=== PATIENT | female | born 1985 | race Caucasian/White ===

== ENCOUNTER 2017-07-16 13:38 | Inpatient (IN) | payer SELFPAY ==
[2017-07-16] MEDS ORDERED: Oxytocin/Lactated Ringers 0 UNIT/0 ML BAG ONE (14:11)
[2017-07-16] MEDS ORDERED: Water For Irrigation,Sterile 1,000 ML Container IRR PRN (14:22)
[2017-07-16] MEDS ORDERED: Butorphanol 1 MG/ML SDV IVPUSH PRN (14:22)
[2017-07-16] MEDS ORDERED: oxyCODONE 5 MG Tab PO PRN (14:22)
[2017-07-16] MEDS ORDERED: Lanolin 100% Cream 7 GM Tube TOP PRN (14:22)
[2017-07-16] MEDS ORDERED: Sodium Chloride 0.9% 10 ML Syringe FLUSH PRN (14:22)
[2017-07-16] MEDS ORDERED: Docusate Sodium 100 MG Cap PO PRN (14:22)
[2017-07-16] MEDS ORDERED: Nalbuphine 10 MG/1 ML Vial IVPUSH PRN (14:22)
[2017-07-16] MEDS ORDERED: Acetaminophen 500 MG Tab PO PRN ×2 (14:22)
[2017-07-16] MEDS ORDERED: Bisacodyl 10 MG Supp RECTAL PRN (14:22)
[2017-07-16] MEDS ORDERED: Ibuprofen 400 MG Tab PO PRN (14:22)
[2017-07-16] MEDS ORDERED: Carboprost Tromethamine 250 MCG/1 ML Amp IM PRN (14:22)
[2017-07-16] MEDS ORDERED: Methylergonovine 0.2 MG/1 ML Amp IM PRN (14:22)
[2017-07-16] MEDS ORDERED: Witch Hazel Medicated Pads 40/Jar TOP PRN (14:22)
[2017-07-16] MEDS ORDERED: Sodium Chloride 0.9% 2.5 ML Syringe FLUSH PRN (14:22)
[2017-07-16] MEDS ORDERED: Lidocaine 1% 50 ML MDV INJECT PRN (14:22)
[2017-07-16] MEDS ORDERED: Misoprostol 200 MCG Tab PO PRN (14:22)
[2017-07-16] MEDS ORDERED: Benzocaine/Menthol 20%-0.5% Spray 78 GM Cannister TOP PRN (14:22)
--- NOTE | 2017-07-16 14:26 | PCM.LDHP ---
L&D History of Present Illness - General Date of Service: 07/16/17 Admit Problem/Dx: Patient Status Order with Admit Dx/Problem 07/16/17 14:22 Patient Status [ADT] Routine Admission Diagnosis/Problem Admission Diagnosis/Problem Source of Information: Patient History Limitations: Reports: No Limitations - History of Present Illness Improves with: Reports: None Worsens with: Reports: None Associated Symptoms: Reports: N - Related Data Allergies/Adverse Reactions: Allergies Allergy/AdvReac Type Severity Reaction Status Date / Time No Known Allergies Allergy Verified 04/07/14 18:17 Home Medications: Home Meds Vits #93/Iron Fum/FA [ Formula Tablet] 04/08/14 [History] Past Medical History - Past Health History Medical/Surgical History: Denies Medical/Surgical History H&P Review of Systems - Review of Systems: Review Of Systems: See Below General: Reports: No Symptoms HEENT: Reports: No Symptoms Pulmonary: Reports: No Symptoms Cardiovascular: Reports: No Symptoms Gastrointestinal: Reports: No Symptoms Genitourinary: Reports: No Symptoms Musculoskeletal: Reports: No Symptoms Skin: Reports: No Symptoms Psychiatric: Reports: No Symptoms Neurological: Reports: No Symptoms Hematologic/Lymphatic: Reports: No Symptoms Immunologic: Reports: No Symptoms L&D Exam - Exam Exam: See Below - OB Specific Contraction Intensity: Moderate to Strong Movement: Active Heart Tones: Present Presentation: Vertex - Simmons Score Simmons Score Cervix Position: Anterior Simmons Score Consistency: Soft Simmons Score Effacement: >80% Simmons Score Dilation: > 5 cm Simmons Score Infant's Station: -1 ,0 Simmons Score Total: 12 - Exam General: Alert, Oriented HEENT: PERRLA, Conjunctiva Clear, EACs Clear, EOMI, Hearing Intact, Mucosa Moist & [place], Nares Patent, Normal Nasal Septum, Posterior Pharynx Clear, TMs Clear Neck: Supple, Trachea Midline Lungs: Clear to Auscultation, Normal Respiratory Effort Cardiovascular: Regular Rate, Regular Rhythm GI/Abdominal Exam: Normal Bowel Sounds, Soft, Non-Tender, No Organomegaly, No Distention, No Abnormal Bruit, No Mass, Pelvis Stable Rectal Exam: Normal Exam, Normal Rectal Tone Genitourinary: Normal external exam, Normal bimanual exam, Normal speculum exam Back Exam: Normal Inspection, Full Range of Motion Extremities: Normal Inspection, Normal Range of Motion, Non-Tender, No Pedal Edema, Normal Capillary Refill Skin: Warm, Dry, Intact Neurological: Cranial Nerves Intact, Reflexes Equal Bilateral Psychiatric: Alert, Normal Affect, Normal Mood Problem List Initiated/Reviewed/Updated: Yes Orders Last 24hrs: Active Orders 24 hr Category Date Time Status Patient Status [ADT] Routine ADT 07/16/17 14:22 Ordered May Shower [RC] ASDIRECTED Care 07/16/17 14:22 Ordered Up ad Maria Elena [RC] ASDIRECTED Care 07/16/17 14:22 Ordered Vital Signs [RC] PER UNIT ROUTINE Care 07/16/17 14:22 Ordered HEMOGLOBIN/HEMATOCRIT,HH [HEME] Timed Lab 07/17/17 05:11 Ordered Acetaminophen [Tylenol Extra Strength] Med 07/16/17 14:22 Ordered 1,000 mg PO Q4H PRN Acetaminophen [Tylenol Extra Strength] Med 07/16/17 14:22 Ordered 500 mg PO Q4H PRN Benzocaine/Menthol [Dermoplast Pain Relief 20%-0.5% Med 07/16/17 14:22 Ordered [place]] 78 gm TOP ASDIRECTED PRN Bisacodyl [Dulcolax] Med 07/16/17 14:22 Ordered 10 mg RECTAL .ONCE PRN Docusate Sodium [Colace] Med 07/16/17 14:22 Ordered 100 mg PO BID PRN Ibuprofen [Motrin] Med 07/16/17 14:22 Ordered 400 mg PO Q4H PRN Ibuprofen [Motrin] Med 07/16/17 14:22 Ordered 800 mg PO Q6H PRN Lanolin [Lansinoh HPA] Med 07/16/17 14:22 Ordered See Dose Instructions TOP ASDIRECTED PRN Witch Lotus [Tucks] Med 07/16/17 14:22 Ordered 1 pad TOP ASDIRECTED PRN oxyCODONE Med 07/16/17 14:22 Ordered 5 mg PO Q2H PRN Assess Lochia [WOMSER] Per Unit Routine Oth 07/16/17 14:22 Ordered Assess Uterine Involution [WOMSER] Per Unit Routine Oth 07/16/17 14:22 Ordered Peripheral IV Discontinue [OM.PC] Routine Oth 07/16/17 14:22 Ordered Resuscitation Status Routine Resus Stat 07/16/17 14:22 Ordered Assessment/Plan Comment:: no care and no record available in active labor the patient claims that she is due yesterday she claimed that she is seen in mounter automatic she is dilated to 7-8 with bulging bag of water vertex at +1 station with an eminent delivery
[2017-07-16] MEDS ORDERED: Lactated Ringers 1,000 ML IV SCH (14:30)
[2017-07-16] MEDS: Ibuprofen 800 MG Tab PO PRN ×2 (14:35→20:55)
[2017-07-17] MEDS: Ibuprofen 800 MG Tab PO PRN ×2 (02:49→09:09)
[2017-07-17 09:15] VITALS: BP 120/79
--- NOTE | 2017-07-17 09:30 | PCM.PNPP ---
- General Info Date of Service: 07/17/17 Functional Status: Reports: Pain Controlled - Review of Systems General: Reports: No Symptoms HEENT: Reports: No Symptoms Pulmonary: Reports: No Symptoms Cardiovascular: Reports: No Symptoms Gastrointestinal: Reports: No Symptoms Genitourinary: Reports: No Symptoms Musculoskeletal: Reports: No Symptoms Skin: Reports: No Symptoms Neurological: Reports: No Symptoms Psychiatric: Reports: No Symptoms - General Info Date of Service: 07/17/17 - Patient Data Vital Signs - Most Recent: Last Vital Signs Temp 37.1 C 07/17/17 09:14 Pulse 79 07/17/17 09:14 Resp 16 07/17/17 09:14 BP 120/79 07/17/17 09:14 Pulse Ox 97 07/17/17 09:14 Weight - Most Recent: 66.678 kg Lab Results - Last 24 Hours: Laboratory Results - last 24 hr 07/16/17 07/16/17 07/17/17 Range/Units 13:59 13:59 05:04 WBC 11.27 H (4.0-11.0) K/uL RBC 4.87 (4.30-5.90) M/uL Hgb 13.5 12.2 (12.0-16.0) g/dL Hct 39.4 36.1 (36.0-46.0) % MCV 80.9 (80.0-98.0) fL MCH 27.7 (27.0-32.0) pg MCHC 34.3 (31.0-37.0) g/dL RDW Std Deviation 45.6 (28.0-62.0) fl RDW Coeff of Rohit 16 H (11.0-15.0) % Plt Count 222 (150-400) K/uL MPV 10.70 (7.40-12.00) fL Nucleated RBC % 0.0 /100WBC Nucleated RBCs # 0 K/uL Blood Type O POSITIVE Antibody Screen NEGATIVE Med Orders - Current: Current Medications Acetaminophen (Tylenol Extra Strength) 500 mg PO Q4H PRN PRN Reason: Pain Acetaminophen (Tylenol Extra Strength) 1,000 mg PO Q4H PRN PRN Reason: Pain Benzocaine/Menthol (Dermoplast Pain Relief 20%-0.5% [place]) 78 gm TOP ASDIRECTED PRN PRN Reason: Perineal Comfort Measure Bisacodyl (Dulcolax) 10 mg RECTAL .ONCE PRN PRN Reason: Constipation Butorphanol Tartrate (Stadol) 1 mg IVPUSH Q1H PRN PRN Reason: Pain Carboprost Tromethamine (Hemabate Ds) 250 mcg IM ASDIRECTED PRN PRN Reason: Post Hemorrhage Docusate Sodium (Colace) 100 mg PO BID PRN PRN Reason: Constipation Emollient Ointment (Lansinoh Hpa) 0 gm TOP ASDIRECTED PRN PRN Reason: Sore Nipples Lactated Ringer's (Ringers, Lactated) 1,000 mls @ 150 mls/hr IV ASDIRECTED KHADRA Ibuprofen (Motrin) 400 mg PO Q4H PRN PRN Reason: Pain Ibuprofen (Motrin) 800 mg PO Q6H PRN PRN Reason: Pain Last Admin: 07/17/17 09:09 Dose: 800 mg Lidocaine HCl (Xylocaine 1%) 50 ml INJECT .ONCE PRN PRN Reason: Laceration repair Methylergonovine Maleate (Methergine) 0.2 mg IM ASDIRECTED PRN PRN Reason: Post Hemorrhage Misoprostol (Cytotec) 200 mcg PO .ONCE PRN PRN Reason: Post Hemorrhage Nalbuphine HCl (Nubain) 10 mg IVPUSH Q1H PRN PRN Reason: Pain (severe 7-10) Oxycodone HCl (Oxycodone) 5 mg PO Q2H PRN PRN Reason: Pain Sodium Chloride (Saline Flush) 10 ml FLUSH ASDIRECTED PRN PRN Reason: Keep Vein Open Sodium Chloride (Saline Flush) 2.5 ml FLUSH ASDIRECTED PRN PRN Reason: Keep Vein Open Sterile Water (Sterile Water For Irrigation) 1,000 ml IRR ASDIRECTED PRN PRN Reason: delivery Witch Lotus (Tucks) 1 pad TOP ASDIRECTED PRN PRN Reason: comfort care Discontinued Medications Oxytocin/Lactated Ringer's (Pitocin In Lr 30 Units/500 Ml) Confirm Administered Dose 30 unit in 500 mls @ as directed .ROUTE .STK-MED ONE Stop: 07/16/17 14:12 - Interaction Infant Disposition, : in Room with Family Infant Interaction: Holding Feeding: Attempted ; Nursed Fair/Poor Support Person: - Recovery Exam Fundal Tone: Firm Fundal Level: At Umbilicus Fundal Placement: Right Lochia Amount: Scant Lochia Color: Rubra/Red Perineum Description: Intact, Minimal Bruising/Swelling Episiotomy/Laceration: None Bladder Status: Voiding Urinary Elimination: Voided - Exam General: Alert, Oriented HEENT: Pupils Equal Neck: Supple Lungs: Clear to Auscultation, Normal Respiratory Effort Cardiovascular: Regular Rate, Regular Rhythm GI/Abdominal Exam: Normal Bowel Sounds, Soft, Non-Tender, No Organomegaly, No Distention, No Abnormal Bruit, No Mass, Pelvis Stable Extremities: Normal Inspection, Normal Range of Motion, Non-Tender, No Pedal Edema, Normal Capillary Refill Skin: Warm, Dry, Intact Wound/Incisions: Healing Well Neurological: No New Focal Deficit Psy/Mental Status: Alert, Normal Affect, Normal Mood - Problem List Review Problem List Initiated/Reviewed/Updated: Yes - My Orders Last 24 Hours: My Active Orders 07/16/17 13:40 Patient Status [ADT] Routine 07/16/17 14:22 Patient Status [ADT] Routine May Shower [RC] ASDIRECTED Up ad Maria Elena [RC] ASDIRECTED Vital Signs [RC] PER UNIT ROUTINE Acetaminophen [Tylenol Extra Strength] 1,000 mg PO Q4H PRN Acetaminophen [Tylenol Extra Strength] 500 mg PO Q4H PRN Benzocaine/Menthol [Dermoplast Pain Relief 20%-0.5% [place]] 78 gm TOP ASDIRECTED PRN Bisacodyl [Dulcolax] 10 mg RECTAL .ONCE PRN Butorphanol [Stadol] 1 mg IVPUSH Q1H PRN Carboprost Tromethamine [Hemabate DS] 250 mcg IM ASDIRECTED PRN Docusate Sodium [Colace] 100 mg PO BID PRN Ibuprofen [Motrin] 400 mg PO Q4H PRN Ibuprofen [Motrin] 800 mg PO Q6H PRN Lanolin [Lansinoh HPA] See Dose Instructions TOP ASDIRECTED PRN Lidocaine 1% [Xylocaine 1%] 50 ml INJECT .ONCE PRN Methylergonovine [Methergine] 0.2 mg IM ASDIRECTED PRN Misoprostol [Cytotec] 200 mcg PO .ONCE PRN Nalbuphine [Nubain] 10 mg IVPUSH Q1H PRN Sodium Chloride 0.9% [Saline Flush] 10 ml FLUSH ASDIRECTED PRN Sodium Chloride 0.9% [Saline Flush] 2.5 ml FLUSH ASDIRECTED PRN Water For Irrigation,Sterile [Sterile Water for Irrigation] 1,000 ml IRR ASDIRECTED PRN Witch Lotus [Tucks] 1 pad TOP ASDIRECTED PRN oxyCODONE 5 mg PO Q2H PRN Assess Lochia [WOMSER] Per Unit Routine Assess Uterine Involution [WOMSER] Per Unit Routine Peripheral IV Discontinue [OM.PC] Routine Resuscitation Status Routine 07/16/17 14:23 May Shower [RC] ASDIRECTED Up ad Maria Elena [RC] ASDIRECTED Vital Signs [RC] PER UNIT ROUTINE Scalp Electrode [WOMSER] Per Unit Routine Peripheral IV Insertion Adult [OM.PC] Routine 07/16/17 14:30 Lactated Ringers [Ringers, Lactated] 1,000 ml IV ASDIRECTED 07/16/17 18:10 Peripheral IV Discontinue [OM.PC] Routine 07/16/17 Dinner Regular Diet [DIET] - Plan Plan:: no care and no record available in active labor the patient claims that she is due yesterday she claimed that she is seen in button riveter she is dilated to 7-8 with bulging bag of water vertex at +1 station with an eminent delivery
--- NOTE | 2017-07-17 09:31 | PCM.DCSUM1 ---
Discharge Summary - Discharge Data Discharge Date: 07/17/17 Discharge Disposition: Home, Self-Care 01 Condition: Good - Patient Instructions Diet: Usual Diet as Tolerated Activity: As Tolerated Driving: Do Not Drive Showering/Bathing: May Shower Notify Provider of: Fever, Increased Pain, Nausea and/or Vomiting - Discharge Plan Home Medications: Home Meds Vits #93/Iron Fum/FA [ Formula Tablet] 04/08/14 [History] Referrals: [facility] [Outside] Jacoby Diana MD [Physician] - 08/27/17 10:45 am - General Info Date of Service: 07/17/17 Functional Status: Reports: Pain Controlled - Review of Systems General: Reports: No Symptoms HEENT: Reports: No Symptoms Pulmonary: Reports: No Symptoms Cardiovascular: Reports: No Symptoms Gastrointestinal: Reports: No Symptoms Genitourinary: Reports: No Symptoms Musculoskeletal: Reports: No Symptoms Skin: Reports: No Symptoms Neurological: Reports: No Symptoms Psychiatric: Reports: No Symptoms - Patient Data Vitals - Most Recent: Last Vital Signs Temp 37.1 C 07/17/17 09:14 Pulse 79 07/17/17 09:14 Resp 16 07/17/17 09:14 BP 120/79 07/17/17 09:14 Pulse Ox 97 07/17/17 09:14 Weight - Most Recent: 66.678 kg Lab Results - Last 24 hrs: Laboratory Results - last 24 hr 07/16/17 07/16/17 07/17/17 Range/Units 13:59 13:59 05:04 WBC 11.27 H (4.0-11.0) K/uL RBC 4.87 (4.30-5.90) M/uL Hgb 13.5 12.2 (12.0-16.0) g/dL Hct 39.4 36.1 (36.0-46.0) % MCV 80.9 (80.0-98.0) fL MCH 27.7 (27.0-32.0) pg MCHC 34.3 (31.0-37.0) g/dL RDW Std Deviation 45.6 (28.0-62.0) fl RDW Coeff of Rohit 16 H (11.0-15.0) % Plt Count 222 (150-400) K/uL MPV 10.70 (7.40-12.00) fL Nucleated RBC % 0.0 /100WBC Nucleated RBCs # 0 K/uL Blood Type O POSITIVE Antibody Screen NEGATIVE Med Orders - Current: Current Medications Acetaminophen (Tylenol Extra Strength) 500 mg PO Q4H PRN PRN Reason: Pain Acetaminophen (Tylenol Extra Strength) 1,000 mg PO Q4H PRN PRN Reason: Pain Benzocaine/Menthol (Dermoplast Pain Relief 20%-0.5% [place]) 78 gm TOP ASDIRECTED PRN PRN Reason: Perineal Comfort Measure Bisacodyl (Dulcolax) 10 mg RECTAL .ONCE PRN PRN Reason: Constipation Butorphanol Tartrate (Stadol) 1 mg IVPUSH Q1H PRN PRN Reason: Pain Carboprost Tromethamine (Hemabate Ds) 250 mcg IM ASDIRECTED PRN PRN Reason: Post Hemorrhage Docusate Sodium (Colace) 100 mg PO BID PRN PRN Reason: Constipation Emollient Ointment (Lansinoh Hpa) 0 gm TOP ASDIRECTED PRN PRN Reason: Sore Nipples Lactated Ringer's (Ringers, Lactated) 1,000 mls @ 150 mls/hr IV ASDIRECTED KHADRA Ibuprofen (Motrin) 400 mg PO Q4H PRN PRN Reason: Pain Ibuprofen (Motrin) 800 mg PO Q6H PRN PRN Reason: Pain Last Admin: 07/17/17 09:09 Dose: 800 mg Lidocaine HCl (Xylocaine 1%) 50 ml INJECT .ONCE PRN PRN Reason: Laceration repair Methylergonovine Maleate (Methergine) 0.2 mg IM ASDIRECTED PRN PRN Reason: Post Hemorrhage Misoprostol (Cytotec) 200 mcg PO .ONCE PRN PRN Reason: Post Hemorrhage Nalbuphine HCl (Nubain) 10 mg IVPUSH Q1H PRN PRN Reason: Pain (severe 7-10) Oxycodone HCl (Oxycodone) 5 mg PO Q2H PRN PRN Reason: Pain Sodium Chloride (Saline Flush) 10 ml FLUSH ASDIRECTED PRN PRN Reason: Keep Vein Open Sodium Chloride (Saline Flush) 2.5 ml FLUSH ASDIRECTED PRN PRN Reason: Keep Vein Open Sterile Water (Sterile Water For Irrigation) 1,000 ml IRR ASDIRECTED PRN PRN Reason: delivery Franky Gautam (Tucks) 1 pad TOP ASDIRECTED PRN PRN Reason: comfort care Discontinued Medications Oxytocin/Lactated Ringer's (Pitocin In Lr 30 Units/500 Ml) Confirm Administered Dose 30 unit in 500 mls @ as directed .ROUTE .STK-MED ONE Stop: 07/16/17 14:12 - Exam General: Reports: Alert, Oriented HEENT: Reports: Pupils Equal, Pupils Reactive, EOMI, Mucous Membr. Moist/[place] Neck: Reports: Supple Lungs: Reports: Clear to Auscultation, Normal Respiratory Effort Cardiovascular: Reports: Regular Rate, Regular Rhythm GI/Abdominal Exam: Normal Bowel Sounds, Soft, Non-Tender, No Organomegaly, No Distention, No Abnormal Bruit, No Mass, Pelvis Stable (Female) Exam: Normal External Exam, Normal Speculum Exam, Normal Bimanual Exam Rectal (Female) Exam: Normal Exam, Normal Rectal Tone Back Exam: Reports: Normal Inspection, Full Range of Motion Extremities: Normal Inspection, Normal Range of Motion, Non-Tender, No Pedal Edema, Normal Capillary Refill Skin: Reports: Warm, Dry, Intact Wound/Incisions: Reports: Healing Well Neurological: Reports: No New Focal Deficit Psy/Mental Status: Reports: Alert, Normal Affect, Normal Mood *Q Meaningful Use (DIS) - VTE *Q VTE Criteria *Q: - Stroke *Q Stroke Criteria *Q: - AMI *Q AMI Criteria *Q:
--- NOTE | 2017-07-17 11:33 | OR ---
SURGEON: Jacoby Diana MD DATE OF PROCEDURE: 07/16/2017 DELIVERY NOTE: Ms. Metzger is a 32-year-old patient. She is, according to her, para 3-0-0-3. This is her 4th child. She had no care, and there is no care available. The patient has claimed that she is due yesterday. She has also claimed that she is seeing the steam shovel operator in [place], and we do not know when the last time she has seen her. She also claimed that she is a GBS negative. The patient is admitted in active labor. At the time of admission, she was 7 to 8 cm, complete, bulging bag of water, and 0 station. Contraction is regular every 2 to 3 minutes. heart rate is normal. The patient has declined IV, but we started an INT on her, and then the patient did have a spontaneous rupture of the membrane with clear fluid, and she proceeded to deliver, had a normal spontaneous vaginal delivery. The fetus cried immediately and score reported to be 8 and 9. The placenta is delivered spontaneous, complete, and intact without any problem. There is no labial or perineal laceration. Estimated blood loss is 250 to 300 mL. heart rate in the brief period the patient was on the monitor was category 1. There was no complication during the process of the delivery. KRISSY / TYREL /[id number]
== END 2017-07-17 16:30 | disposition home or self-care (01) | DRG 775 ==
LOC: MW.OBCHECK 13:38 → MW.OB 13:44 → MW.OBCHECK 14:25 → MW.OB 14:26 → OBSVTOIN 14:26 → MW.OB 17:49
PROVIDERS: ADMIT Obstetrics & Gynecology; ATTEND Obstetrics & Gynecology
PROC: 10E0XZZ Delivery of Products of Conception, External Approach (ICD-10-PCS; principal; 2017-07-16)
DX: O09.33 Supervision of pregnancy with insufficient antenatal care, third trimester (principal); Z3A.40 40 weeks gestation of pregnancy; Z37.0 Single live birth
CPT/HCPCS: 36415; 85014; 85018; 85027; 86850; 86900; 86901; A9270-GY

== ENCOUNTER 2019-03-25 04:44 | Inpatient (IN) | payer SELFPAY ==
[2019-03-25] MEDS ORDERED: Lidocaine 1% 50 ML MDV INJECT PRN (05:11)
[2019-03-25] MEDS ORDERED: Terbutaline 1 MG/ML SDV SUBCUT PRN (05:11)
[2019-03-25] MEDS ORDERED: Water For Irrigation,Sterile 1,000 ML Container IRR PRN (05:11)
[2019-03-25] MEDS ORDERED: Butorphanol 1 MG/ML SDV IVPUSH PRN (05:11)
[2019-03-25] MEDS ORDERED: Methylergonovine 0.2 MG/1 ML Amp IM PRN (05:11)
[2019-03-25] MEDS ORDERED: Carboprost Tromethamine 250 MCG/1 ML Amp IM PRN (05:11)
[2019-03-25] MEDS ORDERED: Tranexamic Acid 1,000 MG in Sodium Chloride 0.9% 100 ML IV PRN (05:11)
[2019-03-25] MEDS ORDERED: Sodium Chloride 0.9% 10 ML SDV IV PRN (05:11)
[2019-03-25] MEDS ORDERED: Sodium Chloride 0.9% 10 ML Syringe FLUSH PRN (05:11)
[2019-03-25] MEDS ORDERED: Nalbuphine 10 MG/1 ML Vial IVPUSH PRN (05:11)
[2019-03-25] MEDS ORDERED: Misoprostol 200 MCG Tab PO PRN (05:11)
[2019-03-25] MEDS ORDERED: Sodium Chloride 0.9% 2.5 ML Syringe FLUSH PRN (05:11)
[2019-03-25] MEDS ORDERED: Ondansetron 4 MG/2 ML SDV IVPUSH PRN (05:11)
[2019-03-25] MEDS ORDERED: Lactated Ringers 1,000 ML IV SCH (05:15)
[2019-03-25] MEDS ORDERED: Oxytocin/0.9 % Sodium Chloride 30 UNIT/500 ML BAG IV SCH ×2 (05:15)
--- NOTE | 2019-03-25 07:02 | PCM.LDHP ---
L&D History of Present Illness - General Date of Service: 03/25/19 Admit Problem/Dx: Patient Status Order with Admit Dx/Problem 03/25/19 04:48 Patient Status [ADT] Routine 03/25/19 05:11 Patient Status [ADT] Routine Admission Diagnosis/Problem Admission Diagnosis/Problem 03/25/19 06:56 33yo EDC 03/25/2019 40 0/7wks O+, RI, GBS neg. SROM this AM at 0250. Source of Information: Patient History Limitations: Reports: No Limitations - History of Present Illness Timing/Duration: Reports: minutes: Location, : Reports: Abdomen Quality: Reports: Burning, Stabbing Severity: Moderate Improves with: Reports: None Worsens with: Reports: None Associated Symptoms: Reports: N - Related Data Allergies/Adverse Reactions: Allergies Allergy/AdvReac Type Severity Reaction Status Date / Time No Known Allergies Allergy Verified 04/07/14 18:17 Home Medications: Home Meds Vits #93/Iron Fum/FA [ Formula Tablet] 04/08/14 [History] Past Medical History - Past Health History Medical/Surgical History: Denies Medical/Surgical History Cardiovascular History: Reports: None Gastrointestinal History: Reports: None Genitourinary History: Reports: None 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: , Spontaneous Musculoskeletal History: Reports: None Neurological History: Reports: None Psychiatric History: Reports: None Endocrine/Metabolic History: Reports: None Hematologic History: Reports: None Immunologic History: Reports: None Oncologic (Cancer) History: Reports: None Dermatologic History: Reports: None - Infectious Disease History Infectious Disease History: Reports: None - Past Surgical History Head Surgeries/Procedures: Reports: None HEENT Surgical History: Reports: Tonsillectomy Cardiovascular Surgical History: Reports: None Social & Family History - Family History HEENT: Reports: None Respiratory: Reports: Asthma OBGYN: Reports: Immunologic: Reports: Immunosuppression - Tobacco Use Smoking Status *Q: Never Smoker Second Hand Smoke Exposure: No - Caffeine Use Caffeine Use: Reports: None - Recreational Drug Use Recreational Drug Use: No H&P Review of Systems - Review of Systems: Review Of Systems: See Below General: Reports: No Symptoms HEENT: Reports: No Symptoms Pulmonary: Reports: No Symptoms Cardiovascular: Reports: No Symptoms Gastrointestinal: Reports: No Symptoms Genitourinary: Reports: No Symptoms Musculoskeletal: Reports: No Symptoms Skin: Reports: No Symptoms Psychiatric: Reports: No Symptoms Neurological: Reports: No Symptoms Hematologic/Lymphatic: Reports: No Symptoms Immunologic: Reports: No Symptoms L&D Exam - Exam Exam: See Below - Vital Signs Weight: 67.132 kg - OB Specific Contraction Intensity: Moderate Movement: Active Heart Tones: Present Heart Tones per Min: 140 Heart Rate (FHR) Variability: Minimal (0-5 bpm) Presentation: Vertex - Simmons Score Simmons Score Cervix Position: Midposition Simmons Score Consistency: Soft Simmons Score Effacement: >80% Simmons Score Dilation: 3-4 cm Simmons Score Infant's Station: -1 ,0 Simmons Score Total: 10 - Exam General: Alert, Oriented, Cooperative HEENT: Hearing Intact Lungs: Normal Respiratory Effort GI/Abdominal Exam: Soft Rectal Exam: Deferred Genitourinary: Normal external exam, Normal bimanual exam, Cervical dilitation Back Exam: Full Range of Motion Extremities: Normal Inspection, Normal Range of Motion, Non-Tender, No Pedal Edema Skin: Warm, Dry, Intact Neurological: Cranial Nerves Intact, Strength Equal Bilateral, Normal Speech, Normal Tone Psychiatric: Alert, Normal Affect, Normal Mood - Patient Data Lab Results Last 24 hrs: Laboratory Results - last 24 hr 03/25/19 03/25/19 Range/Units 05:49 05:49 WBC 8.80 (4.0-11.0) K/uL RBC 4.62 (4.30-5.90) M/uL Hgb 13.3 (12.0-16.0) g/dL Hct 39.6 (36.0-46.0) % MCV 85.7 (80.0-98.0) fL MCH 28.8 (27.0-32.0) pg MCHC 33.6 (31.0-37.0) g/dL RDW Std Deviation 42.8 (28.0-62.0) fl RDW Coeff of Rohit 14 (11.0-15.0) % Plt Count 228 (150-400) K/uL MPV 9.70 (7.40-12.00) fL Nucleated RBC % 0.0 /100WBC Nucleated RBCs # 0 K/uL Blood Type O POSITIVE Antibody Screen NEGATIVE Result Diagrams: 03/25/19 05:49 - Problem List (1) Supervision of normal IUP (intrauterine ) in multigravida SNOMED Code(s): 802803090, 378212269, 021329615 ICD Code: Z34.80 - ENCOUNTER FOR SUPRVSN OF NORMAL , UNSP TRIMESTER Status: Acute Current Visit: Yes Qualifiers: Trimester: third trimester Qualified Code(s): Z34.83 - Encounter for supervision of other normal , third trimester Problem List Initiated/Reviewed/Updated: Yes Orders Last 24hrs: Active Orders 24 hr Category Date Time Status Patient Status [ADT] Routine ADT 03/25/19 05:11 Active Bedrest Bathroom Privileges [RC] ASDIRECTED Care 03/25/19 05:11 Active Communication Order [RC] ASDIRECTED Care 03/25/19 05:11 Active Communication Order [RC] ASDIRECTED Care 03/25/19 05:11 Active May Shower [RC] ASDIRECTED Care 03/25/19 05:11 Active Notify Provider [RC] PRN Care 03/25/19 05:11 Active Notify Provider [RC] PRN Care 03/25/19 05:11 Active Notify Provider [RC] STAT Care 03/25/19 05:11 Active Oxygen Therapy [RC] ASDIRECTED Care 03/25/19 05:11 Active Up ad Maria Elena [RC] ASDIRECTED Care 03/25/19 04:48 Active Vaginal Exam [RC] PRN Care 03/25/19 05:11 Active Vaginal Exam [RC] PRN Care 03/25/19 05:11 Active Vital Signs [RC] PER UNIT ROUTINE Care 03/25/19 04:48 Active Vital Signs [RC] PER UNIT ROUTINE Care 03/25/19 05:11 Active Vital Signs [RC] PER UNIT ROUTINE Care 03/25/19 05:11 Active Regular Diet [DIET] Diet 03/25/19 Breakfast Active Butorphanol [Stadol] Med 03/25/19 05:11 Active 1 mg IVPUSH Q1H PRN Carboprost Tromethamine [Hemabate DS] Med 03/25/19 05:11 Active 250 mcg IM ASDIRECTED PRN Lactated Ringers [Ringers, Lactated] 1,000 ml Med 03/25/19 05:15 Active IV ASDIRECTED Lidocaine 1% [Xylocaine 1%] Med 03/25/19 05:11 Active 50 ml INJECT ONETIME PRN Methylergonovine [Methergine] Med 03/25/19 05:11 Active 0.2 mg IM ASDIRECTED PRN Nalbuphine [Nubain] Med 03/25/19 05:11 Active 10 mg IVPUSH Q1H PRN Ondansetron [Zofran] Med 03/25/19 05:11 Active 4 mg IVPUSH Q6H PRN Oxytocin/0.9 % Sodium Chloride [Oxytocin 30 Unit/500 ML Med 03/25/19 05:15 Active -NS] 30 unit in 500 ml IV TITRATE Oxytocin/0.9 % Sodium Chloride [Oxytocin 30 Unit/500 ML Med 03/25/19 05:15 Active -NS] 30 unit in 500 ml IV TITRATE Sodium Chloride 0.9% [Normal Saline] Med 03/25/19 05:11 Active 10 ml IV ASDIRECTED PRN Sodium Chloride 0.9% [Saline Flush] Med 03/25/19 05:11 Active 10 ml FLUSH ASDIRECTED PRN Sodium Chloride 0.9% [Saline Flush] Med 03/25/19 05:11 Active 2.5 ml FLUSH ASDIRECTED PRN Terbutaline [Brethine] Med 03/25/19 05:11 Active 0.25 mg SUBCUT ASDIRECTED PRN Tranexamic Acid [Cyklokapron] 1,000 mg Med 03/25/19 05:11 Active Sodium Chloride 0.9% [Normal Saline] 100 ml IV ONETIME Water For Irrigation,Sterile [Sterile Water for Med 03/25/19 05:11 Active Irrigation] 1,000 ml IRR ASDIRECTED PRN miSOPROStol [Cytotec] Med 03/25/19 05:11 Active 200 mcg PO ONETIME PRN Scalp Electrode [WOMSER] Per Unit Routine Oth 03/25/19 05:11 Ordered Medication Administration Instruction [OM.PC] Q3H Oth 03/25/19 05:15 Ordered Peripheral IV Insertion Adult [OM.PC] Routine Oth 03/25/19 05:11 Ordered Resuscitation Status Routine Resus Stat 03/25/19 04:48 Ordered Medication Orders Butorphanol Tartrate (Stadol) 1 mg IVPUSH Q1H PRN PRN Reason: Pain Carboprost Tromethamine (Hemabate Ds) 250 mcg IM ASDIRECTED PRN PRN Reason: Post Hemorrhage Tranexamic Acid 1,000 mg/ (Sodium Chloride) 110 mls @ 660 mls/hr IV ONETIME PRN PRN Reason: Bleeding Lactated Ringer's (Ringers, Lactated) 1,000 mls @ 150 mls/hr IV ASDIRECTED KHADRA Oxytocin/Sodium Chloride (Oxytocin 30 Unit/500 Ml-Ns) 30 unit in 500 mls @ 999 mls/hr IV TITRATE KHADRA Oxytocin/Sodium Chloride (Oxytocin 30 Unit/500 Ml-Ns) 30 unit in 500 mls @ 2 mls/hr IV TITRATE KHADRA; Protocol Lidocaine HCl (Xylocaine 1%) 50 ml INJECT ONETIME PRN PRN Reason: Laceration repair Methylergonovine Maleate (Methergine) 0.2 mg IM ASDIRECTED PRN PRN Reason: Post Hemorrhage Misoprostol (Cytotec) 200 mcg PO ONETIME PRN PRN Reason: Post Hemorrhage Nalbuphine HCl (Nubain) 10 mg IVPUSH Q1H PRN PRN Reason: Pain (severe 7-10) Ondansetron HCl (Zofran) 4 mg IVPUSH Q6H PRN PRN Reason: Nausea/Vomiting Sodium Chloride (Saline Flush) 10 ml FLUSH ASDIRECTED PRN PRN Reason: Keep Vein Open Sodium Chloride (Saline Flush) 2.5 ml FLUSH ASDIRECTED PRN PRN Reason: Keep Vein Open Sodium Chloride (Normal Saline) 10 ml IV ASDIRECTED PRN PRN Reason: IV Use Sterile Water (Sterile Water For Irrigation) 1,000 ml IRR ASDIRECTED PRN PRN Reason: delivery Terbutaline Sulfate (Brethine) 0.25 mg SUBCUT ASDIRECTED PRN PRN Reason: Tacysystole Assessment/Plan Comment:: Labor A: 33yo EDC 03/25/2019 40 0/7wks O+, RI, GBS neg. SROM this AM at 0250. P: Admit, anticipate ÁNGELA, Dr Diana updated
[2019-03-25] MEDS ORDERED: Misoprostol 25 MCG (1/4 of 100 MCG) Tab PO ONE (10:25)
[2019-03-25] MEDS ORDERED: Acetaminophen 500 MG Tab PO PRN ×2 (16:13)
[2019-03-25] MEDS ORDERED: oxyCODONE 5 MG Tab PO PRN (16:13)
[2019-03-25] MEDS ORDERED: Benzocaine/Menthol 20%-0.5% Spray 78 GM Cannister TOP PRN (16:13)
[2019-03-25] MEDS ORDERED: Lanolin 100% Cream 7 GM Tube TOP PRN (16:13)
[2019-03-25] MEDS ORDERED: Docusate Sodium 100 MG Cap PO PRN (16:13)
[2019-03-25] MEDS ORDERED: Bisacodyl 10 MG Supp RECTAL PRN (16:13)
[2019-03-25] MEDS ORDERED: Witch Hazel Medicated Pads 40/Jar TOP PRN (16:13)
[2019-03-25] MEDS ORDERED: Ibuprofen 400 MG Tab PO PRN (16:13)
--- NOTE | 2019-03-25 16:16 | PCM.DEL ---
L & D Note - General Info Date of Service: 03/25/19 Mother's Due Date: 03/25/19 - Delivery Note Labor: Spontaneous Delivery Outcome: Livebirth Infant Delivery Method: Spontaneous Vaginal Delivery-Single Presentation: Vertex Nuchal Cord: None Anesthesia Type: None Amniotic Fluid Description: Clear Episiotomy Type: None Laceration: None Placenta: Intact, Spontaneous Cord: 3 Vessels Estimated Blood Loss: 150 Resuscitation Needed: No : Stimulated Score 1 min: 8 Score 5 min: 9 Second Stage Interventions: Reports: Second Nurse Reviewed Heart Tones, Encouragement Given, Pushing Effectively Delivery Comments (Free Text/Narrative):: viable male infant, spontaneous cry, baby to mom's abdomen skin to skin, delayed cord clamping, cord doubly clamped and cut by FOB, cord blood collected , placenta delivered grossly intact, 3VC, EBL 100mL, perineum intact, pitocin to IVF, Apgars 8/9, nurse at bedside for assessment, mom and baby left in stable condition - General Info Date of Service: 03/25/19 Admission Dx/Problem (Free Text): Patient Status Order with Admit Dx/Problem 03/25/19 04:48 Patient Status [ADT] Routine 03/25/19 05:11 Patient Status [ADT] Routine Admission Diagnosis/Problem Admission Diagnosis/Problem 03/25/19 06:56 33yo EDC 03/25/2019 40 0/7wks O+, RI, GBS neg. SROM this AM at 0250. Functional Status: Reports: Pain Controlled - Review of Systems General: Reports: No Symptoms HEENT: Reports: No Symptoms Pulmonary: Reports: No Symptoms Cardiovascular: Reports: No Symptoms Gastrointestinal: Reports: No Symptoms Genitourinary: Reports: No Symptoms Musculoskeletal: Reports: No Symptoms Skin: Reports: No Symptoms Neurological: Reports: No Symptoms Psychiatric: Reports: No Symptoms - Patient Data Weight - Most Recent: 67.132 kg Lab Results Last 24 Hours: Laboratory Results - last 24 hr 03/25/19 03/25/19 Range/Units 05:49 05:49 WBC 8.80 (4.0-11.0) K/uL RBC 4.62 (4.30-5.90) M/uL Hgb 13.3 (12.0-16.0) g/dL Hct 39.6 (36.0-46.0) % MCV 85.7 (80.0-98.0) fL MCH 28.8 (27.0-32.0) pg MCHC 33.6 (31.0-37.0) g/dL RDW Std Deviation 42.8 (28.0-62.0) fl RDW Coeff of Rohit 14 (11.0-15.0) % Plt Count 228 (150-400) K/uL MPV 9.70 (7.40-12.00) fL Nucleated RBC % 0.0 /100WBC Nucleated RBCs # 0 K/uL Blood Type O POSITIVE Antibody Screen NEGATIVE Med Orders - Current: Current Medications Butorphanol Tartrate (Stadol) 1 mg IVPUSH Q1H PRN PRN Reason: Pain Carboprost Tromethamine (Hemabate Ds) 250 mcg IM ASDIRECTED PRN PRN Reason: Post Hemorrhage Tranexamic Acid 1,000 mg/ (Sodium Chloride) 110 mls @ 660 mls/hr IV ONETIME PRN PRN Reason: Bleeding Lactated Ringer's (Ringers, Lactated) 1,000 mls @ 150 mls/hr IV ASDIRECTED KHADRA Oxytocin/Sodium Chloride (Oxytocin 30 Unit/500 Ml-Ns) 30 unit in 500 mls @ 999 mls/hr IV TITRATE KHADRA Oxytocin/Sodium Chloride (Oxytocin 30 Unit/500 Ml-Ns) 30 unit in 500 mls @ 2 mls/hr IV TITRATE KHADRA; Protocol Lidocaine HCl (Xylocaine 1%) 50 ml INJECT ONETIME PRN PRN Reason: Laceration repair Methylergonovine Maleate (Methergine) 0.2 mg IM ASDIRECTED PRN PRN Reason: Post Hemorrhage Misoprostol (Cytotec) 200 mcg PO ONETIME PRN PRN Reason: Post Hemorrhage Nalbuphine HCl (Nubain) 10 mg IVPUSH Q1H PRN PRN Reason: Pain (severe 7-10) Ondansetron HCl (Zofran) 4 mg IVPUSH Q6H PRN PRN Reason: Nausea/Vomiting Sodium Chloride (Saline Flush) 10 ml FLUSH ASDIRECTED PRN PRN Reason: Keep Vein Open Sodium Chloride (Saline Flush) 2.5 ml FLUSH ASDIRECTED PRN PRN Reason: Keep Vein Open Sodium Chloride (Normal Saline) 10 ml IV ASDIRECTED PRN PRN Reason: IV Use Sterile Water (Sterile Water For Irrigation) 1,000 ml IRR ASDIRECTED PRN PRN Reason: delivery Terbutaline Sulfate (Brethine) 0.25 mg SUBCUT ASDIRECTED PRN PRN Reason: Tacysystole Discontinued Medications Misoprostol (Cytotec) 25 mcg PO ONETIME ONE Stop: 03/25/19 10:26 Last Admin: 03/25/19 10:37 Dose: 25 mcg - Exam General: Alert, Oriented, Cooperative, No Acute Distress Lungs: Normal Respiratory Effort (Female) Exam: Normal External Exam, Vaginal Bleeding Back Exam: Full Range of Motion Extremities: Normal Inspection, Normal Range of Motion Skin: Warm, Dry, Intact Neurological: No New Focal Deficit, Normal Speech, Normal Tone, Sensation Intact Psy/Mental Status: Alert, Normal Affect, Normal Mood - Problem List & Annotations (1) (normal spontaneous vaginal delivery) SNOMED Code(s): 37428963, 529528561 Code(s): O80 - ENCOUNTER FOR FULL-TERM UNCOMPLICATED DELIVERY Status: Acute Priority: High Current Visit: Yes - Problem List Review Problem List Initiated/Reviewed/Updated: Yes - Plan Plan:: Labor A: 33yo EDC 03/25/2019 40 0/7wks O+, RI, GBS neg. SROM this AM at 0250. P: Admit, anticipate , Dr Diana updated Delivery A: , male, Apgars 8/9, wt. pending, intact perineum, EBL 100 mL, mother and baby stable P: Routine plan of care
[2019-03-25] MEDS: Ibuprofen 800 MG Tab PO PRN (16:21)
[2019-03-26] MEDS: Ibuprofen 800 MG Tab PO PRN (00:46)
--- NOTE | 2019-03-26 09:04 | PCM.DCSUM1 ---
Discharge Summary - Hospital Course Free Text/Narrative:: Discharge home with . Follow up in 6 weeks for visit. Diagnosis: Stroke: No - Discharge Data Discharge Date: 03/26/19 Discharge Disposition: Home, Self-Care 01 Condition: Good - Discharge Diagnosis/Problem(s) (1) Supervision of normal IUP (intrauterine ) in multigravida SNOMED Code(s): 261319176, 419304201, 049769636 ICD Code: Z34.80 - ENCOUNTER FOR SUPRVSN OF NORMAL , UNSP TRIMESTER Status: Acute Current Visit: Yes Qualifiers: Trimester: third trimester Qualified Code(s): Z34.83 - Encounter for supervision of other normal , third trimester (2) (normal spontaneous vaginal delivery) SNOMED Code(s): 98655761, 377027594 ICD Code: O80 - ENCOUNTER FOR FULL-TERM UNCOMPLICATED DELIVERY Status: Acute Priority: High Current Visit: Yes - Patient Instructions Diet: Usual Diet as Tolerated Activity: As Tolerated, No Strenuous Activities, Rest and Relax Today Driving: May Drive Today Showering/Bathing: May Shower Notify Provider of: Fever, Increased Pain, Swelling and Redness, Nausea and/or Vomiting Other/Special Instructions: Discharge home with . Follow up in 6 weeks for visit. - Discharge Plan *PRESCRIPTION DRUG MONITORING PROGRAM REVIEWED*: Not Applicable *COPY OF PRESCRIPTION DRUG MONITORING REPORT IN PATIENT LIBBY: Not Applicable Home Medications: Home Meds Vits #93/Iron Fum/FA [ Formula Tablet] 04/08/14 [History] Oxygen Therapy Mode: Room Air Referrals: [facility] [Outside] Wanda Moon CNM [Mid-] - 05/06/19 1:30 pm - Discharge Summary/Plan Comment DC Time >30 min.: Yes - General Info Date of Service: 03/26/19 Admission Dx/Problem (Free Text: Patient Status Order with Admit Dx/Problem 03/25/19 04:48 Patient Status [ADT] Routine 03/25/19 05:11 Patient Status [ADT] Routine Admission Diagnosis/Problem Admission Diagnosis/Problem 03/25/19 06:56 33yo EDC 03/25/2019 40 0/7wks O+, RI, GBS neg. SROM this AM at 0250. Functional Status: Reports: Pain Controlled, Tolerating Diet, Ambulating, Urinating - Review of Systems General: Reports: No Symptoms HEENT: Reports: No Symptoms Pulmonary: Reports: No Symptoms Cardiovascular: Reports: No Symptoms Gastrointestinal: Reports: No Symptoms Genitourinary: Reports: No Symptoms Musculoskeletal: Reports: No Symptoms Skin: Reports: No Symptoms Neurological: Reports: No Symptoms Psychiatric: Reports: No Symptoms - Patient Data Vitals - Most Recent: Last Vital Signs Temp 36.6 C 03/26/19 07:46 Pulse 90 03/26/19 07:46 Resp 15 03/26/19 07:46 BP 105/60 03/26/19 07:46 Pulse Ox 95 03/26/19 07:46 Weight - Most Recent: 67.132 kg Med Orders - Current: Current Medications Acetaminophen (Tylenol Extra Strength) 500 mg PO Q4H PRN PRN Reason: Pain Acetaminophen (Tylenol Extra Strength) 1,000 mg PO Q4H PRN PRN Reason: Pain Benzocaine/Menthol (Dermoplast Pain Relief 20%-0.5% [place]) 78 gm TOP ASDIRECTED PRN PRN Reason: Perineal Comfort Measure Bisacodyl (Dulcolax) 10 mg RECTAL ONETIME PRN PRN Reason: Constipation Docusate Sodium (Colace) 100 mg PO BID PRN PRN Reason: Constipation Emollient Ointment (Lansinoh Hpa) 0 gm TOP ASDIRECTED PRN PRN Reason: Sore Nipples Last Admin: 03/25/19 21:17 Dose: 1 applic Ibuprofen (Motrin) 400 mg PO Q4H PRN PRN Reason: Pain Ibuprofen (Motrin) 800 mg PO Q6H PRN PRN Reason: Pain Last Admin: 03/26/19 00:46 Dose: 800 mg Oxycodone HCl (Oxycodone) 5 mg PO Q2H PRN PRN Reason: Pain Witch Lotus (Tucks) 1 pad TOP ASDIRECTED PRN PRN Reason: comfort care Discontinued Medications Butorphanol Tartrate (Stadol) 1 mg IVPUSH Q1H PRN PRN Reason: Pain Carboprost Tromethamine (Hemabate Ds) 250 mcg IM ASDIRECTED PRN PRN Reason: Post Hemorrhage Tranexamic Acid 1,000 mg/ (Sodium Chloride) 110 mls @ 660 mls/hr IV ONETIME PRN PRN Reason: Bleeding Lactated Ringer's (Ringers, Lactated) 1,000 mls @ 150 mls/hr IV ASDIRECTED KHADRA Oxytocin/Sodium Chloride (Oxytocin 30 Unit/500 Ml-Ns) 30 unit in 500 mls @ 999 mls/hr IV TITRATE KHADRA Oxytocin/Sodium Chloride (Oxytocin 30 Unit/500 Ml-Ns) 30 unit in 500 mls @ 2 mls/hr IV TITRATE KHADRA; Protocol Lidocaine HCl (Xylocaine 1%) 50 ml INJECT ONETIME PRN PRN Reason: Laceration repair Methylergonovine Maleate (Methergine) 0.2 mg IM ASDIRECTED PRN PRN Reason: Post Hemorrhage Misoprostol (Cytotec) 200 mcg PO ONETIME PRN PRN Reason: Post Hemorrhage Misoprostol (Cytotec) 25 mcg PO ONETIME ONE Stop: 03/25/19 10:26 Last Admin: 03/25/19 10:37 Dose: 25 mcg Nalbuphine HCl (Nubain) 10 mg IVPUSH Q1H PRN PRN Reason: Pain (severe 7-10) Ondansetron HCl (Zofran) 4 mg IVPUSH Q6H PRN PRN Reason: Nausea/Vomiting Sodium Chloride (Saline Flush) 10 ml FLUSH ASDIRECTED PRN PRN Reason: Keep Vein Open Sodium Chloride (Saline Flush) 2.5 ml FLUSH ASDIRECTED PRN PRN Reason: Keep Vein Open Sodium Chloride (Normal Saline) 10 ml IV ASDIRECTED PRN PRN Reason: IV Use Sterile Water (Sterile Water For Irrigation) 1,000 ml IRR ASDIRECTED PRN PRN Reason: delivery Terbutaline Sulfate (Brethine) 0.25 mg SUBCUT ASDIRECTED PRN PRN Reason: Tacysystole - Exam General: Reports: Alert, Oriented, Cooperative, No Acute Distress Lungs: Reports: Normal Respiratory Effort GI/Abdominal Exam: Soft (Female) Exam: Deferred, Vaginal Bleeding Rectal (Female) Exam: Deferred Back Exam: Reports: Full Range of Motion Extremities: Normal Range of Motion, Pedal Edema Skin: Reports: Warm, Dry, Intact Neurological: Reports: Normal Speech, Normal Tone, Strength Equal Bilateral Psy/Mental Status: Reports: Alert, Normal Affect, Normal Mood
[2019-03-26 16:37] VITALS: BP 110/61
== END 2019-03-26 18:30 | disposition home or self-care (01) | DRG 807 ==
LOC: MW.OBCHECK 04:44 → MW.OB 04:45 → MW.OBCHECK 05:11 → OBSVTOIN 15:58 → MW.OB 20:25
PROVIDERS: ADMIT Obstetrics & Gynecology; ATTEND Obstetrics & Gynecology
PROC: 10E0XZZ Delivery of Products of Conception, External Approach (ICD-10-PCS; principal; 2019-03-25)
DX: O80 Encounter for full-term uncomplicated delivery (principal); Z37.0 Single live birth; Z3A.40 40 weeks gestation of pregnancy
CPT/HCPCS: 36415; 59025; 59409; 85027; 86850; 86900; 86901; A9270-GY